=== PATIENT | female | born 1955 | race African-American/Black ===

== ENCOUNTER → 2017-01-31 | Outpatient (CLI) | payer OTHER ==
[~2017-01-31] MED LIST: ASPIRIN81 MG PO; ATENOLOL25 MG PO; DILTIAZEM 24HR360 M1 PO; LOSARTAN-HCTZ1 EACH PO; NEXIUM PO; NORVASC PO; OMEPRAZOLE20 M2 PO; OMEPRAZOLE40 M1 PO; PRILOSEC20 M1; PROTONIX PO; TOPROL XL PO
== END | disposition home or self-care (01) ==
LOC: CRAD 01-18 10:00
DX: R13.10 Dysphagia, unspecified (principal)
CPT/HCPCS: 74230; 92611; G8996-GN; G8997-GN; G8998-GN